=== PATIENT | male | born 1975 | race African-American/Black ===

== ENCOUNTER 2019-11-07 09:54 | Emergency (ER) | payer OTHER ==
[~2019-11-07] VITALS: Ht 160 cm; Wt 81.6 kg
== END 2019-11-07 10:22 | disposition home or self-care (01) ==
LOC: ER 09:54
DX: M79.631 Pain in right forearm (principal); S56.211A Strain of other flexor muscle, fascia and tendon at forearm level, right arm, initial encounter; X50.0XXA Overexertion from strenuous movement or load, initial encounter; I10 Essential (primary) hypertension; E11.9 Type 2 diabetes mellitus without complications
CPT/HCPCS: 99282